=== PATIENT | female | born 2005 | race African-American/Black ===

== ENCOUNTER 2025-04-19 17:35 | Emergency (ER) | payer BC, SELFPAY ==
[2025-04-19 17:46] VITALS: BP 120/78; PULSE 85; RESP 16; TEMP 36.9; O2SAT 99
--- NOTE | 2025-04-19 18:03 | ED.GENADULT ---
HPI - General Adult General Chief complaint: Nausea/Vomiting/Diarrhea Stated complaint: lightheaded, nausea Time Seen by Provider: 04/19/25 18:04 Source: patient, RN notes reviewed and old records reviewed Mode of arrival: ambulatory Limitations: no limitations History of Present Illness HPI narrative: 19 year old female accompanied by friend presents to express care with complaints of 2 day of feeling lightheaded, having headache, and having nausea. Patient reports no known fevers, chills or sweats, denies any shortness of breath or any sore throat or any ear pain or pressure. Patient reports that she is drinking fluids well and feels that she gets adequate sleep. Patient reports no history of migraine headaches or cluster headaches. Patient reports no known ill contacts, is student at [employer]. MD complaint: headache, lightheadedness and nausea Onset (ago): day(s) (2) Location: head (back of head) Severity: mild Quality: aching Associated symptoms: other (nausea headache and feels lightheaded) Treatments prior to arrival: other (took Tylenol yesterday) Related Data Allergies Allergy/AdvReac Type Severity Reaction Status Date / Time No Known Allergies Allergy Verified 04/19/25 17:46 Review of Systems Review of Systems: CONSTITUTIONAL: Denies fever, chills, or sweats. EYES: Denies visual changes, redness, or discharge. ENT: Denies rhinorrhea, congestion, sore throat, or otalgia. CARDIOVASCULAR: Denies chest pain, palpitations, or edema. RESPIRATORY: Denies cough or dyspnea. GASTROINTESTINAL: Denies abdominal pain, reports some nausea,no vomiting,no diarrhea. GENITOURINARY: Denies dysuria or hematuria. SKIN: Denies rash or itching. MUSCULOSKELETAL: Denies back pain, joint pain, or myalgia. NEUROLOGIC: reports some intermittent headache, denies any numbness, reports some lightheadedness, denies any syncopal episodes. PSYCHIATRIC: Denies anxiety or depression. All systems reviewed & are unremarkable except as noted in HPI and below PMFSH Past Medical History Medical History (Updated 04/19/25 @ 18:46 by Evi Camacho NP) No pertinent past medical history Surgical History Surgical History (Updated 04/19/25 @ 18:46 by Evi Camacho NP) No history of previous surgery Social History Social History (Updated 04/19/25 @ 18:45 by Evi Camacho NP) Smoking status: Unknown if ever smoked Alcohol intake: unknown Substance use type: does not use Living arrangements: with roommate(s) Occupation/Education: student Gender identity (if verbalized by the patient): Female Comments At time of signature, agree with nursing past medical, surgical, social and family history. There is no relevant family history pertinent to the presenting complaint Exam Narrative: GENERAL: Well-appearing, well-nourished, and in no acute distress. HEAD: Normocephalic, atraumatic. EYES: PERRLA and EOMI.no nystagmus ENT: Nares clear, no rhinorrhea or epistaxis. Mucous membranes moist.TM's normal, throat pink with no redness or swelling NECK: Supple.no lymphadenopathy CHEST: Clear to auscultation. No respiratory distress.SAO2 99% on room air HEART: Regular rate and rhythm. No murmur heard. Normal peripheral pulses. ABDOMEN: Soft, nontender, nondistended, normal active bowel sounds. reports nausea with no vomiting EXTREMITIES: Normal range of motion. No edema. SKIN: Warm, dry, no rash. NEURO: No focal deficits. Alert and oriented x3.gait steady, cranial nerves II-XII intact with no deficit. Course Course Emergency Course: Patient is aware of diagnosis, understands and agrees to treatment plan.? Anticipatory guidance given.? Patient agrees to follow-up as directed and is aware of reasons to seek care at the emergency department. Portions of this record may have been created with voice recognition software Level of Care: Express Care Visit Vital Signs Vital signs: Vital Signs Temperature 36.9 C 04/19/25 17:46 Pulse Rate 85 04/19/25 17:46 Respiratory Rate 16 04/19/25 17:46 Blood Pressure 120/78 04/19/25 17:46 Pulse Oximetry 99 04/19/25 17:46 Temperature 36.9 C 04/19/25 17:46 Pulse Rate 85 04/19/25 17:46 Respiratory Rate 16 04/19/25 17:46 Blood Pressure 120/78 04/19/25 17:46 Pulse Oximetry 99 04/19/25 17:46 Reviewed Medical Decision Making MDM Narrative Medical decision making narrative: Exam findings and imaging show no acute concerns or changes; patient is non-toxic appearing and is in no distress.? Patient is appropriate for outpatient treatment and follow-up Differential Diagnosis Differential Diagnosis: URI, viral syndrome, lightheaded, nausea without vomiting. Medical Records Medical records reviewed: Yes I reviewed the external patient's medical records. Vital Signs Vital Signs: Vital Signs Temperature 36.9 C 04/19/25 17:46 Pulse Rate 85 04/19/25 17:46 Respiratory Rate 16 04/19/25 17:46 Blood Pressure 120/78 04/19/25 17:46 Pulse Oximetry 99 04/19/25 17:46 Temperature 36.9 C 04/19/25 17:46 Pulse Rate 85 04/19/25 17:46 Respiratory Rate 16 04/19/25 17:46 Blood Pressure 120/78 04/19/25 17:46 Pulse Oximetry 99 04/19/25 17:46 reviewed Lab Data Lab results reviewed: Yes I reviewed the patient's lab results. Lab results narrative: COVID antigen negative, Influenza A&B negative Critical Care Time Critical Care Time Critical Care Time: No Discharge Plan Discharge Clinical Impression: Viral syndrome Patient Disposition: Home Condition: Stable Instructions: Viral Syndrome (ED) Additional Instructions: Increase fluids especially juices and water Tylenol or ibuprofen for any fever pain make sure you are eating a well-balanced diet and getting enough rest Zofran for nausea as prescribed go to the emergency room if you have increased symptoms, increased headache, increased nausea,or any concerning symptoms If your symptoms persist, change or worsen significantly before you can contact your personal physician then please, without delay, go to the emergency department for further evaluation. Follow-up with PCP in 7-10 days or sooner if needed Negative COVID and Negative Flu Patient Language: [place] Prescriptions: New ondansetron 4 mg tablet,disintegrating 4 mg PO Q6H PRN (Reason: nausea and vomiting) Qty: 14 0RF Rx Instructions: whatever preparation which is covered by insurance Follow-up/Referrals: UNKNOWN,DOCTOR [Primary Care Provider] Time of Disposition: 18:37 Quality Sj Coma Scale Eyes: Open Verbal: Oriented and Alert Motor: Follows Commands [place] Coma Total Score: 15
[2025-04-19 18:36] LABS: EDCOVIDSCREEN Negative (Negative)
[2025-04-19 18:37] LABS: EDINFLUASCREEN Negative (Negative); EDINFLUBSCREEN Negative (Negative)
== END 2025-04-19 18:42 | disposition home or self-care (01) ==
PROVIDERS: Emergency Provider Registered Nurse
DX: B34.9 Viral infection, unspecified (principal); Z20.822 Contact with and (suspected) exposure to COVID-19
CPT/HCPCS: 87426; 87804; 99203; G0463